=== PATIENT | male | born 1955 | race Caucasian/White ===

== ENCOUNTER → 2017-05-03 | Outpatient (CLI) | payer OTHER ==
[~2017-05-03] MED LIST: ALBUTEROL0.09 MG/A2 INH; ALBUTEROL0.09 MG/Ac INH; Flovent 44 Mcg44 MCG INH; LANTUS100 U/ML SC; LISINOPRIL20 MG PO; LOVASTATIN10 MG PO; MOTRIN800 MG PO; NEURONTIN100 MG PO; NOVOLIN N100 U/ML SC; TRAMADOL50 MG PO; ULTRAM50 MG PO; ZITHROMAX Z PA250 MG PO
== END ==
LOC: CARD 12:57
DX: I34.0 Nonrheumatic mitral (valve) insufficiency (principal)

== ENCOUNTER 2017-06-29 12:00 | Inpatient (IN) | payer OTHER ==
[~2017-06-29] VITALS: Ht 172.7 cm; Wt 113.4 kg
[2017-06-29] VITALS (8 sets, daily range): BP systolic 88–125; BP diastolic 44–73
[2017-06-29 12:59] LABS: BASO # 0.1 10*3/uL (0.0-0.1); BASO % 0.5 % (0.0-1.0); EOS # 0.1 10*3/uL (0.0-0.4); EOS % 1.1 % (1.0-4.0); HEMATOCRIT 43.1 % (42.0-52.0); HEMOGLOBIN 14.5 g/dl (14.0-18.0); LYMPH # 1.7 10*3/uL (1.3-4.4); LYMPH % 15.7 % (27.0-41.0); MEAN CELL VOLUME 92.5 fl (80.0-94.0); MEAN CORPUSCULAR HGB 31.1 pg (27.0-31.0); MEAN CORPUSCULAR HGB CONC 33.6 g/dl (33.0-37.0); MEAN PLATELET VOLUME 9.8 fl (9.6-12.3); MONO # 0.9 10*3/uL (0.1-1.0); MONO % 8.1 % (3.0-9.0); NEUT # 8.1 10*3/uL (2.3-7.9); NEUT % 74.2 % (47.0-73.0); PLATELET COUNT AUTOMATED 129 10*3/uL (130-400); RED BLOOD COUNT 4.66 10*6/uL (4.50-5.90); RED CELL DISTRI WIDTH 12.8 % (0-14.5); WHITE BLOOD COUNT 10.9 10*3/uL (4.8-10.8)
[2017-06-29 13:15] LABS: ALBUMIN 2.9 gm/dl (3.1-4.5); ALKALINE PHOSPHATASE 72 U/L (45-117); BUN 22 mg/dl (7-24); CHLORIDE 106 mmol/L (98-107); CREATININE 0.64 mg/dL (0.70-1.30); MAGNESIUM 2.4 mg/dL (1.5-2.1); POTASSIUM 4.1 mmol/L (3.5-5.1); SGOT/AST 19 IU/L (3-35); SGPT/ALT 26 U/L (12-78); SODIUM 140 mmol/L (136-145); TOTAL PROTEIN 6.9 gm/dL (6.4-8.2); TROPONIN I < 0.015 ng/ml (<0.045)
[2017-06-29 13:18] LABS: ACT PARTIAL THROMBO TIME 26.1 SECONDS (20.8-31.5); INTERNATIONAL NORM RATIO 1.1 (2.0-3.5)
[2017-06-29] MEDS ORDERED: LOVASTATIN20 MG PO (16:57)
[2017-06-29] MEDS ORDERED: NEURONTIN300 MG PO (16:58)
[2017-06-29] MEDS ORDERED: ASMANEX110 MC1 INH (16:59)
[2017-06-29] MEDS ORDERED: CLARITIN10 MG PO (17:00)
[2017-06-29] MEDS ORDERED: TOUJEO SOL300 UNIT/1 SQ (17:01)
[2017-06-29] MEDS ORDERED: INVOKANA100 M1 PO (17:01)
[2017-06-30] VITALS: BP 144/87
[2017-06-30 06:29] LABS: HEMATOCRIT 40.3 % (42.0-52.0); HEMOGLOBIN 13.7 g/dl (14.0-18.0); LYMPH # 0.9 10*3/uL (1.3-4.4); LYMPH % 8.6 % (27.0-41.0); MEAN CELL VOLUME 93.3 fl (80.0-94.0); MEAN CORPUSCULAR HGB 31.7 pg (27.0-31.0); MEAN PLATELET VOLUME 10.3 fl (9.6-12.3); MONO # 0.2 10*3/uL (0.1-1.0); MONO % 1.8 % (3.0-9.0); NEUT # 9.2 10*3/uL (2.3-7.9); NEUT % 89.1 % (47.0-73.0); PLATELET COUNT AUTOMATED 114 10*3/uL (130-400); RED BLOOD COUNT 4.32 10*6/uL (4.50-5.90); RED CELL DISTRI WIDTH 12.9 % (0-14.5); WHITE BLOOD COUNT 10.3 10*3/uL (4.8-10.8)
[2017-06-30 06:56] LABS: ALBUMIN 2.7 gm/dl (3.1-4.5); ALKALINE PHOSPHATASE 73 U/L (45-117); BUN 24 mg/dl (7-24); CHLORIDE 111 mmol/L (98-107); CHOLESTEROL 107 mg/dL (<200); CREATININE 0.61 mg/dL (0.70-1.30); FREE T4 1.58 ng/dl (0.76-1.46); HDL CHOLESTEROL 49 mg/dl (40-60); LDL CHOLESTEROL 41 mg/dL (9-159); MAGNESIUM 2.6 mg/dL (1.5-2.1); PHOSPHOROUS 2.7 mg/dL (2.5-4.9); POTASSIUM 4.7 mmol/L (3.5-5.1); SGOT/AST 21 IU/L (3-35); SGPT/ALT 27 U/L (12-78); SODIUM 142 mmol/L (136-145); TOTAL PROTEIN 6.7 gm/dL (6.4-8.2); TRIGLYCERIDES 84 mg/dl (<150); VLDL CHOLESTEROL 17 mg/dL (6-40)
[2017-06-30 07:02] LABS: THYROID STIM HORMONE (HS) 0.068 uIU/ml (0.358-4.75)
[2017-06-30 07:28] LABS: VITAMIN D, 25-HYDROXY 16.2 ng/mL (30-100)
[2017-06-30 08:00] VITALS: BP 121/78
[2017-06-30 12:00] VITALS: BP 133/64
[2017-06-30 16:00] VITALS: BP 113/59
[2017-06-30 20:00] VITALS: BP 118/64
[2017-07-01] VITALS: BP 134/70
[2017-07-01 08:00] VITALS: BP 125/79
[2017-07-01] MEDS ORDERED: METHIMAZOLE5 M1 PO (11:47)
[2017-07-01] MEDS ORDERED: PREDNISONE10 MG PO (11:47)
[2017-07-01] MEDS ORDERED: AZITHROMYCIN500 M2 PO (11:47)
[2017-07-01] MEDS ORDERED: Vitamin D PO (11:47)
[2017-07-01 16:15] LABS: MYCOPLASMA PNEUMONIAE IGG <100 U/mL (0-99); MYCOPLASMA PNEUMONIAE IGM <770 U/mL (0-769)
== END 2017-07-01 12:15 | disposition home or self-care (01) | DRG 871 ==
LOC: ED 12:00 → 4E 14:22 → EDHOLD 14:22 → 4E 15:51
PROVIDERS: Emergency Medicine; Registered Nurse; ADMIT Internal Medicine
DX: A41.9 Sepsis, unspecified organism (principal); J18.1 Lobar pneumonia, unspecified organism; E44.0 Moderate protein-calorie malnutrition; E11.40 Type 2 diabetes mellitus with diabetic neuropathy, unspecified; K70.30 Alcoholic cirrhosis of liver without ascites; I10 Essential (primary) hypertension; J30.2 Other seasonal allergic rhinitis; B19.20 Unspecified viral hepatitis C without hepatic coma; R07.89 Other chest pain; E05.90 Thyrotoxicosis, unspecified without thyrotoxic crisis or storm; E55.9 Vitamin D deficiency, unspecified; E04.2 Nontoxic multinodular goiter; E78.5 Hyperlipidemia, unspecified; E11.65 Type 2 diabetes mellitus with hyperglycemia; R65.20 Severe sepsis without septic shock; Z68.38 Body mass index [BMI] 38.0-38.9, adult; Z79.4 Long term (current) use of insulin; Z72.0 Tobacco use; Z88.1 Allergy status to other antibiotic agents; Z91.011 Allergy to milk products; Z79.899 Other long term (current) drug therapy; Z80.9 Family history of malignant neoplasm, unspecified; Z83.3 Family history of diabetes mellitus; Z82.49 Family history of ischemic heart disease and other diseases of the circulatory system

== ENCOUNTER → 2017-08-02 | Outpatient (CLI) | payer OTHER ==
[~2017-08-02] MED LIST changes: +ASMANEX110 MC1 INH; +AZITHROMYCIN500 M2 PO; +CLARITIN10 MG PO; +INVOKANA100 M1 PO; +LOVASTATIN20 MG PO; +METHIMAZOLE5 M1 PO; +NEURONTIN300 MG PO; +PREDNISONE10 MG PO; +TOUJEO SOL300 UNIT/1 SQ; +Vitamin D PO
== END | disposition home or self-care (01) ==
LOC: RAD 10:33
DX: J20.9 Acute bronchitis, unspecified (principal); R05 Cough; J18.9 Pneumonia, unspecified organism; E11.8 Type 2 diabetes mellitus with unspecified complications; F17.200 Nicotine dependence, unspecified, uncomplicated